=== PATIENT | female | born 1960 | race African-American/Black ===

== ENCOUNTER 2017-08-06 04:58 | Emergency (ER) | payer MEDICAID ==
[~2017-08-06] VITALS: Ht 170.2 cm; Wt 59.0 kg
[2017-08-06 06:36] LABS: *AMPHETAMINES SCREEN URINE NEGATIVE (NEGATIVE); *BARBITURATES SCREEN URINE NEGATIVE (NEGATIVE); *BENZODIAZEPINES SCREEN URINE NEGATIVE (NEGATIVE); *COCAINE SCREEN URINE PRESUMTIVE POSITIVE (NEGATIVE); CANNABINOID URINE SCREEN PRESUMTIVE POSITIVE (NEGATIVE); METHADONE URINE SCREEN NEGATIVE (NEGATIVE); OPIATES URINE SCREEN NEGATIVE (NEGATIVE); PHENCYCLIDINE URINE SCREEN NEGATIVE (NEGATIVE)
[2017-08-06 08:03] VITALS: BP 108/73
== END 2017-08-06 08:29 | disposition home or self-care (01) ==
LOC: ER 04:58
DX: F14.10 Cocaine abuse, uncomplicated (principal); Z63.4 Disappearance and death of family member; R53.1 Weakness; I51.7 Cardiomegaly; J44.9 Chronic obstructive pulmonary disease, unspecified; F17.210 Nicotine dependence, cigarettes, uncomplicated
CPT/HCPCS: 80305; 93005; 99285